=== PATIENT | male | born 1960 | race Caucasian/White ===

== ENCOUNTER 2016-06-21 14:46 | Outpatient (CLI) | payer MEDICARE, MEDICAID | END 2016-06-21 14:47 | disposition home or self-care (01) | DX: G47.33 Obstructive sleep apnea (adult) (pediatric) (principal) | CPT/HCPCS: 99214; G0463 ==

== ENCOUNTER 2018-02-06 12:17 | Outpatient (CLI) | payer MEDICARE, MEDICAID ==
--- NOTE | 2018-02-06 14:49 | XRAY Report ---
Reason: CALCULUS OF KIDNEY Procedure Date: 02/06/2018 Accession Number: [id number] / [id number] Procedure: XR - Abdomen 1 View X-Ray CPT Code: 51820 FULL RESULT: EXAM: ABDOMEN RADIOGRAPHY EXAM DATE: 02/06/2018 12:53 PM. CLINICAL HISTORY: Calculus of kidney. COMPARISON: None. TECHNIQUE: 1 view. FINDINGS: Bowel Gas Pattern: Within normal limits. No dilated loops. Other: No definite kidney stones are identified. IMPRESSION: No definite renal calculi. RADIA
== END 2018-02-06 12:18 | disposition home or self-care (01) ==
LOC: DI 12:17
PROVIDERS: ATTEND Specialist
DX: N20.0 Calculus of kidney (principal)
CPT/HCPCS: 74018

== ENCOUNTER 2018-04-25 08:58 | Outpatient (CLI) | payer MEDICARE, MEDICAID ==
--- NOTE | 2018-04-25 15:12 | XRAY Report ---
Reason: CALCULUS OF KIDNEY Procedure Date: 04/25/2018 Accession Number: [id number] / [id number] Procedure: XR - Abdomen 1 View X-Ray CPT Code: 19295 FULL RESULT: EXAM: ABDOMEN RADIOGRAPHY EXAM DATE: 04/25/2018 09:52 AM. CLINICAL HISTORY: Calculus of kidney. COMPARISON: ABDOMEN 1 VIEW 02/06/2018 12:51 PM ABDOMEN/PELVIS / 09/11/2017 10:49 AM. TECHNIQUE: 1 view. FINDINGS: Bowel Gas Pattern: Within normal limits. No dilated loops. Other: The known right and left lower pole nonobstructing tiny calculi are not identified on today's examination. IMPRESSION: Nonvisualization of known calculi. RADIA
== END 2018-04-25 08:59 | disposition home or self-care (01) ==
LOC: DI 08:58
PROVIDERS: ATTEND Specialist
DX: N20.0 Calculus of kidney (principal)
CPT/HCPCS: 74018

== ENCOUNTER 2018-12-11 07:51 | Outpatient (CLI) | payer MEDICARE, MEDICAID | END 2018-12-11 07:52 | disposition home or self-care (01) | LOC: LAB 07:51 | PROVIDERS: ATTEND Specialist | DX: N40.1 Benign prostatic hyperplasia with lower urinary tract symptoms (principal) | CPT/HCPCS: 36415; 84153 ==

== ENCOUNTER 2018-12-11 08:03 | Outpatient (CLI) | payer MEDICARE, MEDICAID ==
--- NOTE | 2018-12-12 13:57 | XRAY Report ---
Reason: KIDNEY STONES Procedure Date: 12/11/2018 Accession Number: [id number] / [id number] Procedure: XR - Abdomen 1 View X-Ray CPT Code: 40302 FULL RESULT: EXAM: ABDOMEN RADIOGRAPHY EXAM DATE: 12/11/2018 08:22 AM. CLINICAL HISTORY: KIDNEY STONES. COMPARISON: ABDOMEN 1 VIEW 04/25/2018 9:44 AM. TECHNIQUE: 1 view. FINDINGS: Bowel Gas Pattern: Within normal limits. No dilated loops. Other: There is a density measuring approximately 4 mm overlying the lower pole of the left kidney which is partially obscured by colonic gas. Possible left kidney stone. No definite ureteral stone. IMPRESSION: 1. Possible 4 mm left kidney stone. No definite ureter stone visualized. RADIA
== END 2018-12-11 08:04 | disposition home or self-care (01) ==
LOC: DI 08:03
PROVIDERS: ATTEND Specialist
DX: N20.0 Calculus of kidney (principal); N40.1 Benign prostatic hyperplasia with lower urinary tract symptoms
CPT/HCPCS: 36415; 74018; 84153

== ENCOUNTER 2019-03-23 12:49 | Outpatient (CLI) | payer MEDICARE, MEDICAID ==
--- NOTE | 2019-03-24 11:07 | Ultrasound Report ---
Reason: THYROID NODULE, LYMPHOMA Procedure Date: 03/23/2019 Accession Number: [id number] / [id number] Procedure: US - Head or Neck Soft Tissue CPT Code: Final Report FULL RESULT: EXAM: THYROID ULTRASOUND EXAM DATE: 03/23/2019 01:44 PM. CLINICAL HISTORY: THYROID NODULE, LYMPHOMA. COMPARISON: NECK SOFT TISSUE W09/11/2017 10:49 AM CHEST W/ 03/12/2019 9:17 AM. TECHNIQUE: Real time sonographic imaging of the thyroid was performed by the customer service engineer. Multiple software support representative static images were saved for review. FINDINGS: THYROID GLAND: Right Lobe: 5.6 x 1 6 x 2.0 cm, volume 9.4 cc. Normal background echotexture. Right Lobe Nodules: 1. Lower pole 18 x 11 x 10 mm predominantly cystic complex nodule. Left Lobe: 5.4 x 1.5 x 2.0 cm, volume 8.5 cc. Normal background echotexture. Left Lobe Nodules: None. Isthmus: 0.4 cm AP. Isthmic Nodules: None. LYMPH NODES: No adenopathy demonstrated in the central or lateral compartment. Nonspecific morphologically benign-appearing right level II lymph node measuring 2 x 5 x 9 mm. OTHER: None. IMPRESSION: 1. Complex right thyroid nodule measuring 18 mm, low suspicion pattern. This nodule meets criteria for consideration of ultrasound-guided FNA biopsy, if not already performed. Otherwise consider continued ultrasound surveillance in 12-24 months. Management recommendations are based on 2015 [place] [employer] Management Guidelines for Adult Patients with Thyroid Nodules and Differentiated Thyroid Cancer. RADIA
== END 2019-03-23 12:50 | disposition home or self-care (01) ==
LOC: DI 12:49
PROVIDERS: ATTEND Internal Medicine Hematology & Oncology
DX: E04.1 Nontoxic single thyroid nodule (principal); C82.90 Follicular lymphoma, unspecified, unspecified site
CPT/HCPCS: 76536

== ENCOUNTER 2019-04-15 09:00 | Outpatient (CLI) | payer MEDICARE, MEDICAID ==
--- NOTE | 2019-04-16 07:00 | XRAY Report ---
Reason: KIDNEY STONES,BLADDER CALCULI Procedure Date: 04/15/2019 Accession Number: [id number] / [id number] Procedure: XR - Abdomen 1 View X-Ray CPT Code: 85914 Final Report FULL RESULT: EXAM: ABDOMEN RADIOGRAPHY EXAM DATE: 04/15/2019 09:06 AM. CLINICAL HISTORY: KIDNEY STONES, BLADDER CALCULI. COMPARISON: ABDOMEN 1 VIEW 12/11/2018 8:07 AM ABDOMEN/PELVIS W/ 03/12/2019 9:17 AM. TECHNIQUE: 1 view. FINDINGS: Bowel Gas Pattern: Within normal limits. No dilated loops. Other: Renal and bladder calculi seen on CT of 03/12/2019 are not well appreciated on plain film. IMPRESSION: No evidence of bowel obstruction. RADIA
== END 2019-04-15 09:01 | disposition home or self-care (01) ==
LOC: DI 09:00
PROVIDERS: ATTEND Specialist
DX: N21.0 Calculus in bladder (principal); N20.0 Calculus of kidney
CPT/HCPCS: 74018

== ENCOUNTER 2019-09-15 09:26 | Outpatient (CLI) | payer MEDICARE, MEDICAID ==
--- NOTE | 2019-09-15 14:00 | XRAY Report ---
PROCEDURE: Abdomen 1 View X-Ray INDICATIONS: KIDNEY STONES TECHNIQUE: 1 view of the abdomen were acquired. COMPARISON: X-ray abdomen 04/15/2019 FINDINGS: Surgical changes and devices: None. Bowel: No pneumoperitoneum. The bowel gas pattern is normal. Soft tissues: No masses; visualized solid organ contours appear normal in size. No suspicious abdom inal calcifications. Bones: No suspicious bony abnormalities. IMPRESSION: No visualized calcifications overlying the renal shadows or the expected course of the u reters. Reviewed by: Ann Jeffries MD on 09/15/2019 1:59 PM PDT Approved by: Ann Jeffries MD on 09/15/2019 1:59 PM PDT Station ID: [id number]
== END 2019-09-15 09:27 | disposition home or self-care (01) ==
LOC: DI 09:26
PROVIDERS: ATTEND Specialist
DX: N20.0 Calculus of kidney (principal)
CPT/HCPCS: 74018

== ENCOUNTER 2021-03-24 15:58 | Outpatient (CLI) | payer MEDICARE, MEDICAID | END 2021-03-24 15:59 | disposition critical access hospital (66) | LOC: EMS 15:58 | DX: M54.9 Dorsalgia, unspecified (principal) | CPT/HCPCS: A0425; A0429 ==

== ENCOUNTER 2021-03-24 16:19 | Emergency (ER) | payer MEDICARE, MEDICAID ==
[2021-03-24 16:27] VITALS: BP 134/93
[2021-03-24] MEDS ORDERED: KETOROLAC 60 MG/2 ML VIAL IM STA (17:11)
[2021-03-24] MEDS ORDERED: DEXAMETHASONE 10 MG/ML VIAL IM STA (17:11)
--- NOTE | 2021-03-24 17:14 | ED Physician Documentation ---
History of Present Illness - Stated complaint Stated Complaint: LOW BACK PX - Chief complaint Chief Complaint: Back Pain - History obtained from History obtained from: Patient - Additonal information Additional information: Patient comes to the emergency department with chief complaint of bilateral low back pain after lifting boxes. Patient states the pains been going on for about 3 weeks. No prior history of back issues or back injury. No difficulty controlling bowel or bladder. No sensory deficit or pain shooting down legs. No spinal pain. He states he feels the pain across his low back on both sides. Hurts more after bending over. He also notices that it is worse when he goes from a sitting to standing position. No fevers or chills. No abdominal pain. No nausea or vomiting. Patient denies any other complaints at this time. Review of Systems Ten Systems: 10 systems reviewed and negative Constitutional: reports: Reviewed and negative Eyes: reports: Reviewed and negative Ears: reports: Reviewed and negative Nose: reports: Reviewed and negative Throat: reports: Reviewed and negative Cardiac: reports: Reviewed and negative Respiratory: reports: Reviewed and negative GI: reports: Reviewed and negative : reports: Reviewed and negative Skin: reports: Reviewed and negative Musculoskeletal: reports: Back pain Neurologic: reports: Reviewed and negative Psychiatric: reports: Reviewed and negative Endocrine: reports: Reviewed and negative Immunocompromised: reports: Reviewed and negative PD PAST MEDICAL HISTORY - Past Medical History Past Medical History: Yes Endocrine/Autoimmune: Type 2 diabetes : Benign prostate hypertrophy - Present Medications Home Medications: Ambulatory Orders Medication Instructions Recorded Confirmed ARIPiprazole [Abilify] 15 mg PO DAILY 11/20/12 03/14/21 Enalapril [Vasotec] 10 mg PO BID 11/20/12 03/14/21 Metformin HCl [Metformin HCl ER] 850 mg PO BID 11/20/12 03/14/21 Simvastatin 40 mg PO HS 11/20/12 03/14/21 Topiramate [Topamax] 100 mg PO DAILY 11/20/12 03/14/21 Glimepiride 2 mg PO DAILY 08/31/14 03/14/21 Tamsulosin [Flomax] 1 tab PO DAILY 06/18/17 03/14/21 Fluoxetine HCl [Prozac] 20 mg PO DAILY 03/10/19 03/14/21 Pioglitazone [Actos] 30 mg PO DAILY 03/14/21 03/14/21 Cyclobenzaprine [Flexeril] 10 mg PO TID PRN #20 tablet 03/24/21 - Allergies Allergies/Adverse Reactions: Allergies Allergy/AdvReac Type Severity Reaction Status Date / Time No Known Drug Allergies Allergy Verified 03/24/21 16:27 - Social History Does the pt smoke?: No Smoking Status: Never smoker PD ED PE NORMAL - Vitals Vital signs reviewed: Yes - General General: Alert and oriented X 3, No acute distress, Well developed/nourished - HEENT HEENT: Atraumatic, PERRL, EOMI, Moist mucous membranes - Cardiac Cardiac: RRR, No murmur, No gallop, No rub, Strong equal pulses, Other - Respiratory Respiratory: No respiratory distress, Clear bilaterally - Abdomen Abdomen: Soft, Non tender, Non distended - Back Back: No CVA TTP, No spinal TTP, Other (Tenderness bilateral lumbar paraspinal musculature.) - Derm Derm: Normal color, Warm and dry, No rash - Extremities Extremities: No deformity, No edema, No calf tenderness / cord - Neuro Neuro: Alert and oriented X 3, manager business continuity 2-12 intact, No motor deficit, No sensory deficit, Normal speech - Psych Psych: Normal mood, Normal affect Results - Vitals Vitals: Vital Signs - 24 hr 03/24/21 16:23 Temperature 35.9 C L Heart Rate 72 Respiratory 16 Rate Blood Pressure 134/93 H O2 Saturation 100 Oxygen O2 Source Room air PD MEDICAL DECISION MAKING - ED course Complexity details: considered differential, d/w patient ED course: Patient was treated symptomatically in the emergency department Toradol and Decadron. He was given a prescription for Flexeril to take as needed, along with Motrin, at home. He is advised to avoid heavy lifting until his back is feeling better, and to follow-up with his primary care physician. Departure - Departure Disposition: Home, Self Care Clinical Impression: Lumbar strain Qualifiers: Encounter type: initial encounter Qualified Code(s): S39.012A - Strain of muscle, fascia and tendon of lower back, initial encounter Condition: Stable Instructions: ED Sprain Strain Lumbar Prescriptions: Cyclobenzaprine [Flexeril] 10 mg PO TID PRN #20 tablet PRN Reason: Spasms
== END 2021-03-24 17:58 | disposition home or self-care (01) ==
LOC: EDUNIT# → ED 16:19
DX: S39.012A Strain of muscle, fascia and tendon of lower back, initial encounter (principal); X58.XXXA Exposure to other specified factors, initial encounter; E11.9 Type 2 diabetes mellitus without complications; Z79.84 Long term (current) use of oral hypoglycemic drugs
CPT/HCPCS: 96374; 99282

== ENCOUNTER 2023-01-30 14:12 | Outpatient (CLI) | payer MEDICARE, MEDICAID ==
--- NOTE | 2023-01-30 14:59 | Sleep Patient Instructions ---
Sleep Center Visit Summary - Patient Visit Information Reason for Visit: Initial consultation - Patient Instructions Additional Instructions: You will continue with CPAP therapy with pressure changed to 10 cmH2O. A supply prescription will be updated with your DME. We are also updating your CPAP, please call us to make a followup appointment once you have your new CPAP machine. We encourage you to continue to try to lose weight. Please follow up with the sleep care office one month after you get your new CPAP. - Clinic Information Contact: [facility] [address] [place] [address] [email or web address] T: [phone]
--- NOTE | 2023-01-30 15:00 | SLEEP CARE CONSULTATION ---
Information from patient questionnaire entered by Leighton Shook. I have reviewed and concur with the information entered by Leighton Shook. This document represents the service I personally performed and the decisions made by me, Hortensia Sterling ARNP. History of Present Illness Service Date and Time: 01/30/2023 1412 Reason for Visit: New patient, Previously diagnosed sleep apnea, sleep apnea on CPAP therapy, Re-establish care Chief Complaint: reports: Snoring, Observed pauses in breathing Date of Onset: 30+YRS Usual bedtime: 9PM Time it takes to fall asleep: 10MINS Snores at night: Yes Observed to quit breathing while asleep: Yes Sleeps alone due to snoring: Yes Number of times waking at night: 2 Reasons for waking at night: reports: Bathroom Toss, Turn, or Twitch while sleeping: Yes Recalls having dreams: Yes Usually gets out of bed at: 9AM Feels refreshed in the morning: No Morning headache: No Sleepy or fatigued during the day: No Ever fallen asleep while driving: No Takes day naps: Yes Dreams during day naps: No Prior sleep studies: Yes ([place]) Year and Where: 2009 [facility] Additional HPI information: SHANKAR WEINSTEIN was previously diagnosed to have very severe, AHI 70.8, obstructive sleep apnea-hypopnea syndrome in 08/2009 here at [facility] and comes in today to re-establish care for CPAP therapy. He says he comes back because the doctor wanted him to be seen. He says he sleeps well with his CPAP and that he is getting supplies regularly. - Parasomnia Symptoms Ever been unable to move upon waking from sleep: No Walks in sleep: No Talks in sleep: No Ever acted out dreams in sleep: No Ever felt weak in the knees when startled or emotional: No Bothered by creepy, crawly, restless sensations in legs: No Problems with memory or concentration: Yes CPAP Compliance Data - Data Reviewed with Patient Average duration of nightly device use: 10 hours 58 minutes Compliance rate %: 96.2 (355/365 days used) Current pressure setting (cmH2O): 9 Average residual AHI: 8.8 Central apnea: 1.4 Obstructive apnea: 2.3 Hypopnea: 5.1 Average large leak: 3 hours 6 minutes 33 secs Compliance data discussion: He has a REMstar Pro that he was set up in 2014. He has been getting his supplies through the mail from [facility]. He is using a full face mask ([employer]). He has a back up mask and did change the cushion a couple days ago. Subjective Missed days of use due to: denies: other (won't use it on nights that are stormy, afraid of getting struck by lightening) Patient concerns: reports: mask leak noise (just needs adjust mask), dry mouth, nose, throat (nightly). denies: aerophagia, mask discomfort, air blowing in eyes, condensation in mask/hose, nasal congestion, epistaxis Observed to snore while using device: No Current pressure setting perceived as: comfortable On therapy, patient: reports: sleeping better, awakening more refreshed, being more awake and alert during the day, more rested overall. denies: drowsiness while driving (does not drive) Initial Worden Sleepiness Scale score: 5 (01/16/23) Past Medical History Past Medical History: reports: Diabetes, Anxiety, Depression Social History The patient's occupation is a RE. Patient is Single and lives in [place]. Have you smoked in the past 12 months: No Alcohol use: No Caffeine use: Yes Caffeine amount and frequency: 1 drink daily Family History Family history of sleep disordered breathing: No Allergies and Home Medications Known drug allergies: No Drug allergies reviewed: Yes Home medication list reviewed: Yes Allergy and home medication list: Allergies No Known Drug Allergies Allergy (Verified 01/29/23 09:04) Home Medications Medication Instructions Recorded Confirmed Last Taken Type ARIPiprazole [Abilify] 15 mg PO DAILY 11/20/12 10/09/22 Unknown History Enalapril [Vasotec] 10 mg PO BID 11/20/12 10/09/22 Unknown History Metformin HCl [Metformin HCl ER] 850 mg PO BID 11/20/12 10/09/22 Unknown History Simvastatin 40 mg PO HS 11/20/12 10/09/22 Unknown History Topiramate [Topamax] 100 mg PO DAILY 11/20/12 10/09/22 Unknown History Glimepiride 2 mg PO DAILY 08/31/14 10/09/22 Unknown History Tamsulosin [Flomax] 1 tab PO DAILY 06/18/17 10/09/22 Unknown History Fluoxetine HCl [Prozac] 20 mg PO DAILY 03/10/19 10/09/22 Unknown History Pioglitazone [Actos] 30 mg PO DAILY 03/14/21 10/09/22 Unknown History Cyclobenzaprine [Flexeril] 10 mg PO TID PRN #20 tablet 03/24/21 10/09/22 Unknown Rx Review of Systems Weight loss over past 5 years: 10? Cardiovascular: reports: high blood pressure Gastrointestinal: reports: diarrhea Urinary: reports: frequency Psychiatric: reports: anxiety, depression Ear/Nose/Throat: reports: tonsillectomy, wisdom teeth removed Endocrine: reports: increased urination Physical Exam Vital signs obtained and entered by: LEIGHTON Villatoro MA Blood Pressure: 132/80 (LEFT ARM) Cuff size: regular Heart Rate: 83 O2 Saturation: 98 Height: 6 ft 3 in Weight: 251 lb Body Mass Index: 31.4 BMI Classification: Obese Neck circumference: 19 Heart: regular rate and rhythm Lungs: clear bilaterally Impression and Plan 1. Obstructive Sleep Apnea-Hypopnea Syndrome, very severe, with good treatment compliance and good apnea control. On CPAP therapy, the patient has better sleep quality and is more rested overall. He has a REMstar CPAP from [employer] that he received in 2015. The patients pressure will be changed to autoCPAP 10 cmH20 for elevation of residual AHI. Patient advised to contact me if pressure change is uncomfortable so that it can be adjusted. Goals for apnea control discussed. The patients CPAP is over 5 years old and of reasonable use. Thus, the CPAP w ill be updated. The new CPAPs also have a better humidity system which could assist control of patients dryness symptoms. A DWO prescription will be made. Compliance guidelines for new device and follow up discussed. Patient's apnea severity and rationale for treatment to reduce apnea, improve sleep quality and reduce cardiovascular and cerebrovascular events was reviewed. I also reviewed the benefit of consistent device use of CPAP for diabetes, depression and anxiety. 2. Obesity, unspecified. Currently patients BMI is 31.4. Obesity increases the risk of apnea, CPAP pressure requirements and overall health risks especially cardiovascular and diabetes. Thus patient is advised to lose weight. * Change auto CPAP pressure to 10 cmH2O * Update machine * Update supply prescription * Notify me if snoring with mask or feeling that the pressure is too much or too little * Attempt to lose weight * Call this office if any problems using CPAP * Return for follow up one month after obtaining new CPAP, or sooner if concerns arise Counseling Topics: Spare mask, Weight loss health impact Prescriptions: Auto CPAP, Device supplies Follow up with Sleep Care in: 1-2 months Visit Type: In Office Time Spent with Patient (minutes): 31 Provider Statement: I spent 100% of the Face to Face Visit with the patient with greater than 50% spent counseling the patient and coordination of care.
[2023-01-30 15:06] VITALS: BP 132/80; O2SAT 98
== END 2023-01-30 14:13 | disposition home or self-care (01) ==
LOC: SC 14:12
PROVIDERS: ATTEND Nurse Practitioner Family
DX: G47.33 Obstructive sleep apnea (adult) (pediatric) (principal); E66.9 Obesity, unspecified; Z68.31 Body mass index [BMI] 31.0-31.9, adult
CPT/HCPCS: 99203; G0463; 99212

== ENCOUNTER 2023-08-07 13:15 | Outpatient (CLI) | payer MEDICARE, MEDICAID | END 2023-08-07 13:30 | disposition home or self-care (01) | LOC: LAB.N 13:15 | PROVIDERS: ATTEND Family Medicine | DX: R30.0 Dysuria (principal) | CPT/HCPCS: 87086 ==